=== PATIENT | male | born 1960 | race Caucasian/White ===

== ENCOUNTER 2016-10-28 18:24 | Emergency (ER) | payer OTHER ==
[2016-10-28 18:55] LABS: Urine Bilirubin Negative (NEGATIVE); Urine Blood 25 /ul (NEGATIVE); Urine Ketone 50 mg/dL (NEGATIVE); Urine Protein Negative (NEGATIVE); Urine Urobilinogen Normal (NORMAL); Urine pH 5.5 pH (5.0-7.0)
[2016-10-28 19:15] LABS: Urine Appearance Clear; Urine Bacteria 2+; Urine Color Yellow; Urine Nitrite Positive (NEGATIVE); Urine RBC 0-5 /hpf (0-5)
--- NOTE | 2016-10-28 19:42 | ERNOTE ---
Medical Problem HPI - General Chief Complaint: General Assessment Time Seen by Provider: 10/28/16 19:29 Source: patient Exam Limitations: no limitations - Immun/Allergies/Home Medications Immunizations: IMMUNIZATION HX Immunizations Up to Date Yes History of Influenza Vaccine No Hx Pneumococcal Vaccination More Information Required Allergies/Adverse Reactions: Allergies No Known Allergies Allergy (Verified 10/28/16 18:38) Home Medications: HOME MEDICATIONS metFORMIN HCL [Glucophage] 1,000 mg PO BIDWM #60 tablet 04/20/15 [Last Taken Unknown] Ciprofloxacin HCl [Cipro] 500 mg PO BID #20 tab 10/28/16 [Last Taken Unknown] - History of Present History Narrative: Patient has not felt well in three days, fatigued, increased urination. He denies any dysuria, chills, no fever. He has a history of kidney stones not of UTIs. He vomited once this morning after breakfast, has been able to keep fluids down since. He is a diabetic, has not checked his glucose in a while Date (Duration): 10/25/16 Review of Systems - Review of Systems Constitutional: Present: chills. Absent: recent illness, fever ENT: Absent: ear pain, nose congestion, sore throat Respiratory: Present: cough - slight. Absent: shortness of breath Cardiology: Absent: chest pain Gastrointestinal/Abdominal: Present: See HPI, vomiting, abdominal pain - mild ache. Absent: diarrhea Genitourinary: Present: frequency. Absent: dysuria Musculoskeletal: Absent: back pain Skin: Absent: rash Neurological: Absent: headache - Patient's Past Medical History Patient History - Medical: Diabetes Type 2, Kidney stone Patient History - Cardiac/Respiratory: No pertinent hx Patient History - Cancer: No Hx of Cancer Patient History - Surgical Procedures: Other Patient History - Other: None - Family History Mother Family History - Medical: Diabetes Type 2 Family History - Cardiac/Respiratory: Cardiac Arrest Father Family History - Cardiac/Respiratory: COPD Sister Family History - Medical: Diabetes Type 2, Depression - Social History Living Situations: home Abuse History: No History of abuse Psych History: No pertinent hx Smoking Status: Never smoker Patient requests Smoking Cessation Consult: No Initiate information on Smoking Cessation: No Alcohol Use: none Drug Use: none - Immunizations Immunizations Up to Date: Yes Hx Pneumococcal Vaccination: More Information Required to Determine History of Influenza Vaccine: No Physical Exam - Physical Exam General Appearance: Present: wd/wn, alert, no apparent distress Eye Exam: Normal inspection: bilateral Ears, Nose, Throat: Present: normal ENT inspection, normal pharynx Respiratory: Present: no respiratory distress, normal breath sounds, no accessory muscle use, lungs clear Cardiovascular/Chest: Present: regular rate, rhythm, no murmur Gastrointestinal/Abdominal: Present: normal bowel sounds, nontender, nondistended, soft Back Exam: Present: normal inspection, no vertebral tenderness, CVA tenderness ( R) - mild Extremity Exam: Present: no edema Neurological Exam: Present: alert, oriented, normal mood/affect Skin Exam: Present: normal color, warm/dry ED Progress - Results and Orders Patient's Lab Results:: I have reviewed the patient's lab results. - Vital Signs Patient's Vital Signs:: I have reviewed the patient's vital signs. Vital Signs: Vital Signs 10/28/16 18:35 Temperature 37.3 C Pulse Rate 109 H Respiratory 20 Rate Blood Pressure 147/85 O2 Sat by Pulse 94 Oximetry - Progress/Reassessment Chief Complaint: General Assessment Progress Note-Subjective: 10/28/16 20:23 discussed results and plan with patient Departure - Departure Clinical Impression: UTI (urinary tract infection) Qualifiers: Urinary tract infection type: acute cystitis Hematuria presence: without hematuria Qualified Code(s): N30.00 - Acute cystitis without hematuria Disposition: Home self-care Condition: Good Instructions: Urinary Tract Infection, Adult, [id number] Referrals: Octavio Harp DO [Primary Care Provider] - Prescriptions: Ciprofloxacin HCl [Cipro] 500 mg PO BID #20 tab
[2016-10-28 20:02] LABS: Hematocrit 43.4 % (42.0-52.0); Hemoglobin 15.3 gm/dL (13.5-18.0); Mean Cell Volume 86.8 fl (78-100); Mean Corpuscular Hemoglobin 30.6 pg (27-31); Mean Corpuscular Hgb Conc 35.3 g/dl (32-36); Mean Platelet Volume 11.8 fl (6.0-9.5); Neutrophil # 5.3 K/mm3 (1.3-6.0); Neutrophil % 59.9 % (42-75.0); Platelet Count 184 K/mm3 (150-450); Red Cell Distribution Width 11.9 % (11.5-14.0); White Blood Count 8.9 K/mm3 (4.0-10.5)
[2016-10-28 20:12] LABS: Albumin * 3.7 gm/dl (3.4-5.0); Anion Gap 18.5 mmol/L (6.8-13.8); BUN/Creatinine Ratio 11.6 (9.0-21.6); Bilirubin, Total 0.4 mg/dL (0.0-1.1); Ca. Corrected For Albumin 8.8 mg/dL (8.4-10.2); Calcium * 8.9 mg/dL (7.9-10.9); Carbon Dioxide 22.8 mmol/L (24-32.6); Potassium 4.3 mmol/L (3.4-4.6); Total Protein 7.3 gm/dL (6.2-8.2)
[2016-10-28] MEDS ORDERED: CIPROFLOXACIN HCL 250 MG TABLET PO ONE (20:15)
[2016-10-28] MEDS ORDERED: CIPROFLOXACIN HCL 250 MG TABLET ONE (20:28)
[2016-10-28 20:34] VITALS: BP 136/72
== END 2016-10-28 21:12 | disposition home or self-care (01) ==
LOC: ER 18:24
DX: N30.00 Acute cystitis without hematuria (principal); Z87.442 Personal history of urinary calculi

== ENCOUNTER 2016-12-01 21:13 | Emergency (ER) | payer OTHER ==
--- NOTE | 2016-12-01 21:40 | ERNOTE ---
Chest Pain/Cardiac HPI Chief Complaint: Chest Pain Time Seen by Provider: 12/01/16 21:39 Source: patient, family Exam Limitations: no limitations Immunizations: IMMUNIZATION HX Immunizations Up to Date Yes History of Influenza Vaccine No Hx Pneumococcal Vaccination More Information Required Allergies/Adverse Reactions: Allergies No Known Allergies Allergy (Verified 10/28/16 18:38) Home Medications: HOME MEDICATIONS metFORMIN HCL [Glucophage] 1,000 mg PO BIDWM #60 tablet 04/20/15 [Last Taken Unknown] Aspirin [Aspir-Low] 81 mg PO DAILY 12/01/16 [Last Taken Unknown] Rosuvastatin Calcium [Crestor] 10 mg PO DAILY 12/01/16 [Last Taken Unknown] Narrative: pt had onset of left sided chest pain approx 4 hours [employer] while sitting watching TV. Timing: constant, gone now Severity/Quality: moderate, aching Location: left chest Activities at Onset: none Review of Systems - Review of Systems Constitutional: Present: no symptoms reported EYE: Present: no symptoms reported ENT: Present: no symptoms reported Respiratory: Present: cough Cardiology: Present: See HPI. Absent: edema, claudication Gastrointestinal/Abdominal: Absent: nausea Genitourinary: Present: no symptoms reported Musculoskeletal: Present: no symptoms reported Skin: Present: no symptoms reported Neurological: Present: no symptoms reported Endocrine: Present: no symptoms reported Hematologic/Lymphatic: Present: no symptoms reported Psych: Present: no symptoms reported - Patient's Past Medical History Patient History - Medical: Diabetes Type 2, Kidney stone Patient History - Cardiac/Respiratory: No pertinent hx Patient History - Cancer: No Hx of Cancer Patient History - Surgical Procedures: Other Patient History - Other: None - Family History Mother Family History - Medical: Diabetes Type 2 Family History - Cardiac/Respiratory: Cardiac Arrest Father Family History - Cardiac/Respiratory: COPD Sister Family History - Medical: Diabetes Type 2, Depression - Social History Living Situations: parents Abuse History: No History of abuse Psych History: No pertinent hx Smoking Status: Never smoker Alcohol Use: none Drug Use: none - Immunizations Immunizations Up to Date: Yes Hx Pneumococcal Vaccination: More Information Required to Determine History of Influenza Vaccine: No Physical Exam - Physical Exam General Appearance: Present: wd/wn, alert, no apparent distress Eye Exam: Normal inspection: bilateral, PERRL: bilateral Ears, Nose, Throat: Present: normal ENT inspection Neck: Present: normal inspection, nontender Respiratory: Present: no respiratory distress, normal breath sounds, lungs clear Cardiovascular/Chest: Present: regular rate, rhythm, no murmur, normal peripheral pulses Gastrointestinal/Abdominal: Present: normal bowel sounds, nontender, no organomegaly Back Exam: Present: normal inspection, normal range of motion, no CVA tenderness , no vertebral tenderness Extremity Exam: Present: normal inspection, normal range of motion, no edema Neurological Exam: Present: alert, oriented, normal mood/affect, no motor/ sensory deficits Skin Exam: Present: normal color, warm/dry ED Progress - Results and Orders Patient's Lab Results:: I have reviewed the patient's lab results. Results and Orders: Laboratory Tests 12/01/16 12/01/16 12/01/16 21:35 21:35 21:35 WBC 9.3 Hgb 14.8 Hct 41.7 L Plt Count 201 PT 10.0 INR (Anticoag Therapy) 0.96 PTT ([place]) 25.0 Sodium 133 Potassium 4.2 Chloride 97 Carbon Dioxide 23.1 L Anion Gap 17.1 H BUN 10 Creatinine 1.27 Est GFR (Non-Af Amer) 63 BUN/Creatinine Ratio 7.9 L Random Glucose 639 H* Calcium 8.8 Total Bilirubin 0.5 AST 15 ALT 29 Alkaline Phosphatase 78 Troponin I Less than 0.017 Total Protein 6.9 Albumin 3.7 - Vital Signs Patient's Vital Signs:: I have reviewed the patient's vital signs. Vital Signs: Vital Signs 12/01/16 21:21 Temperature 37.1 C Pulse Rate 80 Respiratory 20 Rate Blood Pressure 135/88 O2 Sat by Pulse 94 Oximetry - EKG EKG: NSR EKG read: Interp. by me - X-Ray X-Ray #1 X-Ray: chest Interpretation: Interp. by me X-ray Comments: normal - Progress/Reassessment Chief Complaint: Chest Pain Departure - Departure Clinical Impression: Hyperglycemia Disposition: Home Follow Up Needed Condition: Fair Instructions: Hyperglycemia, [id number] Additional Instructions: Talk to your regular doctor about additional medication for your diabetes as soon as possible. Watch your diet and take your medications as directed. pay close attention to your blood sugars and discuss any high blood sugars with your doctor. Referrals: Octavio Harp, [Primary Care Provider] -
[2016-12-01 21:46] LABS: Hematocrit 41.7 % (42.0-52.0); Hemoglobin 14.8 gm/dL (13.5-18.0); Mean Cell Volume 88.5 fl (78-100); Mean Corpuscular Hemoglobin 31.4 pg (27-31); Mean Corpuscular Hgb Conc 35.5 g/dl (32-36); Mean Platelet Volume 11.3 fl (6.0-9.5); Neutrophil # 4.5 K/mm3 (1.3-6.0); Neutrophil % 48.6 % (42-75.0); Platelet Count 201 K/mm3 (150-450); Red Blood Count 4.71 M/mm3 (4.7-6.0); Red Cell Distribution Width 12.2 % (11.5-14.0); White Blood Count 9.3 K/mm3 (4.0-10.5)
[2016-12-01 21:52] LABS: INR 0.96 INR (0.90-1.10)
[2016-12-01 21:59] LABS: ALT 29 U/L (19-67); AST 15 U/L (0-48); Albumin * 3.7 gm/dl (3.4-5.0); Alkaline Phosphatase * 78 U/L (50-170); Anion Gap 17.1 mmol/L (6.8-13.8); BUN/Creatinine Ratio 7.9 (9.0-21.6); Bilirubin, Total 0.5 mg/dL (0.0-1.1); Blood Urea Nitrogen 10 mg/dL (6-23); Ca. Corrected For Albumin 8.7 mg/dL (8.4-10.2); Calcium * 8.8 mg/dL (7.9-10.9); Carbon Dioxide 23.1 mmol/L (24-32.6); Chloride 97 mmol/L (97-106); Potassium 4.2 mmol/L (3.4-4.6); Sodium 133 mmol/L (132-142); Total Protein 6.9 gm/dL (6.2-8.2)
[2016-12-01 22:17] LABS: Troponin I Less than 0.017 ng/ml (0.00-0.10)
[2016-12-01 22:18] LABS: Glucose * 639 mg/dL (70-110)
[2016-12-01] MEDS ORDERED: INSULIN LISPRO 100 UNITS/ML VIAL SC ONE (23:28)
[2016-12-01] MEDS ORDERED: INSULIN LISPRO 100 UNITS/ML VIAL ONE (23:31)
[2016-12-02 00:41] VITALS: BP 121/76
== END 2016-12-02 00:57 | disposition home or self-care (01) ==
LOC: ER 21:13
DX: R73.9 Hyperglycemia, unspecified (principal)

== ENCOUNTER 2017-06-22 19:11 | Emergency (ER) | payer OTHER ==
[2017-06-22 19:34] LABS: Hematocrit 43.7 % (42.0-52.0); Hemoglobin 15.2 gm/dL (13.5-18.0); Mean Cell Volume 88.3 fl (78-100); Mean Corpuscular Hemoglobin 30.7 pg (27-31); Mean Corpuscular Hgb Conc 34.8 g/dl (32-36); Mean Platelet Volume 10.7 fl (6.0-9.5); Neutrophil # 5.3 K/mm3 (1.3-6.0); Neutrophil % 52.6 % (42-75.0); Platelet Count 192 K/mm3 (150-450); Red Blood Count 4.95 M/mm3 (4.7-6.0); Red Cell Distribution Width 12.5 % (11.5-14.0)
[2017-06-22 19:46] LABS: Partial Thrombolplastin Time 25.7 Seconds (24-32)
[2017-06-22 19:52] LABS: ALT 41 U/L (19-67); AST 23 U/L (0-48); Albumin * 3.9 gm/dl (3.4-5.0); Alkaline Phosphatase * 66 U/L (50-170); Anion Gap 15.9 mmol/L (6.8-13.8); Bilirubin, Total 0.5 mg/dL (0.0-1.1); Blood Urea Nitrogen 14 mg/dL (6-23); Ca. Corrected For Albumin 8.9 mg/dL (8.4-10.2); Calcium * 9.1 mg/dL (7.9-10.9); Carbon Dioxide 26.8 mmol/L (24-32.6); Chloride 101 mmol/L (97-106); Glucose * 223 mg/dL (70-110); Potassium 3.7 mmol/L (3.4-4.6); Sodium 140 mmol/L (132-142); Total Protein 7.3 gm/dL (6.2-8.2)
[2017-06-22 19:53] LABS: Troponin I Less than 0.017 ng/ml (0.00-0.10)
[2017-06-22] MEDS ORDERED: ASPIRIN 325 MG TABLET.DR PO ONE (20:07)
[2017-06-22] MEDS ORDERED: ASPIRIN 81 MG TAB.CHEW ONE (20:12)
[2017-06-22 20:35] LABS: Urine Bilirubin Negative (NEGATIVE); Urine Blood Negative /ul (NEGATIVE); Urine Ketone 5 mg/dL (NEGATIVE); Urine Nitrite Negative (NEGATIVE); Urine Protein 15 mg/dL (NEGATIVE); Urine Specific Gravity 1.015 SP.GR. (1.005-1.030); Urine Urobilinogen Normal (NORMAL)
[2017-06-22 20:45] LABS: Urine Appearance Clear; Urine Bacteria TRACE; Urine Color Yellow; Urine RBC None Seen /hpf (0-5); Urine WBC TRACE /hpf (0-5)
--- NOTE | 2017-06-22 20:49 | ERNOTE ---
Chest Pain/Cardiac HPI Date of Service: 06/22/17 Chief Complaint: Chest Pain Time Seen by Provider: 06/22/17 20:07 Source: patient Immunizations: IMMUNIZATION HX Immunizations Up to Date Yes History of Influenza Vaccine No Hx Pneumococcal Vaccination More Information Required Allergies/Adverse Reactions: Allergies No Known Allergies Allergy (Verified 10/28/16 18:38) Home Medications: HOME MEDICATIONS metFORMIN HCL [Glucophage] 1,000 mg PO BIDWM #60 tablet 04/20/15 [Last Taken Unknown] Aspirin [Aspir-Low] 81 mg PO DAILY 12/01/16 [Last Taken Unknown] Rosuvastatin Calcium [Crestor] 10 mg PO DAILY 12/01/16 [Last Taken Unknown] Glimepiride 1 mg PO DAILY 06/22/17 [Last Taken Unknown] Narrative: 56-year-old male with a history of diabetes and high cholesterol who comes to the emergency department complaining of some chest fullness. The patient says he's felt run down with no energy for the last day and a half. He says he took a nap this afternoon. He woke up around 6:00 and then walked to the dining room table from a sofa. He said after the walk he had some fullness in his chest. He says he has been getting sweaty all over and does have some mild shortness of breath. He denies nausea or vomiting. The pain does not radiate anywhere. He has never had similar symptoms in the past. The discomfort is very hard for him to describe. He has no tingling in his hands. No radiation to the neck or the jaw. No other associated symptoms besides those mentioned. He does not smoke has no family of early cardiac disease and no known high blood pressure Review of Systems - Review of Systems Constitutional: Present: no symptoms reported EYE: Present: no symptoms reported ENT: Present: no symptoms reported Respiratory: Present: shortness of breath Cardiology: Present: chest pain Gastrointestinal/Abdominal: Present: no symptoms reported Genitourinary: Present: no symptoms reported Musculoskeletal: Present: no symptoms reported Skin: Present: no symptoms reported Neurological: Present: no symptoms reported Endocrine: Present: no symptoms reported Hematologic/Lymphatic: Present: no symptoms reported Psych: Present: no symptoms reported All Other Systems: All systems neg except as marked - Patient's Past Medical History Patient History - Medical: Diabetes Type 2, Kidney stone Patient History - Cardiac/Respiratory: No pertinent hx Patient History - Cancer: No Hx of Cancer Patient History - Surgical Procedures: Other Patient History - Other: None - Family History Mother Family History - Medical: Diabetes Type 2 Family History - Cardiac/Respiratory: Cardiac Arrest Father Family History - Cardiac/Respiratory: COPD Sister Family History - Medical: Diabetes Type 2, Depression - Social History Living Situations: spouse Abuse History: No History of abuse Psych History: No pertinent hx Smoking Status: Never smoker Have you smoked in the past 12 months: No Do you dip or chew tobacco: No Alcohol Use: none Drug Use: none - Immunizations Immunizations Up to Date: Yes Hx Pneumococcal Vaccination: More Information Required to Determine History of Influenza Vaccine: No Physical Exam - Physical Exam General Appearance: Present: wd/wn, alert, no apparent distress Head Exam: Present: normal inspection, no evidence of injury Eye Exam: Normal inspection: bilateral, PERRL: bilateral, EOMI: bilateral Ears, Nose, Throat: Present: normal ENT inspection, normal pharynx Neck: Present: normal inspection, nontender Respiratory: Present: no respiratory distress, normal breath sounds, no accessory muscle use, lungs clear Cardiovascular/Chest: Present: regular rate, rhythm, no murmur, normal peripheral pulses Gastrointestinal/Abdominal: Present: normal bowel sounds, nontender, nondistended Back Exam: Present: normal inspection, normal range of motion, no CVA tenderness , no vertebral tenderness Extremity Exam: Present: normal inspection, non-tender, normal range of motion, no edema Neurological Exam: Present: alert, oriented, normal mood/affect, no motor/ sensory deficits Skin Exam: Present: normal color, warm/dry Lymphatic Exam: Present: no adenopathy ED Progress - Results and Orders Patient's Lab Results:: I have reviewed the patient's lab results. - Vital Signs Patient's Vital Signs:: I have reviewed the patient's vital signs. Vital Signs: Vital Signs 06/22/17 06/22/17 06/22/17 19:16 19:44 20:08 Temperature 36.6 C 36.6 C 36.7 C Pulse Rate 76 73 76 Respiratory 20 20 19 Rate Blood Pressure 135/87 132/83 136/76 O2 Sat by Pulse 93 93 94 Oximetry - EKG EKG: NSR EKG read: Interp. by me EKG Comments: Normal sinus rhythm normal axis normal intervals no acute ST segment changes - X-Ray X-Ray #1 X-Ray: chest Interpretation: Interp. by me X-ray Comments: No acute cardiopulmonary disease - Progress/Reassessment Chief Complaint: Chest Pain Progress:: Improved Progress Note-Subjective: 06/23/17 00:42 She does wear a do not have any definitive cause for his symptoms. I will give him today off of work. He will follow-up with his family doctor. He is aware he may need to set up a stress test as an outpatient. He will return for new worsening symptoms Departure Clinical Impression: Chest pain - Departure Disposition: Home self-care Condition: Good Instructions: Chest Pain Observation Additional Instructions: Ancillary discussed, the tests and studies we have done here in the emergency department do not identify a definitive cause for your symptoms. This does not mean that your symptoms are not from her heart. He may still have a heart problem. I want you call your family doctor and talked to him about whether or not you need a stress test. He did decide how much stress and frustration you're going to deal with in life. Change in lifestyle may be prudent. If you develop new concerning symptoms she should return to the ER. Referrals: Octavio Harp DO [Primary Care Provider] -
[2017-06-23 01:25] VITALS: BP 135/87
== END 2017-06-23 00:50 | disposition home or self-care (01) ==
LOC: ER 19:11
DX: R07.9 Chest pain, unspecified (principal); Z87.442 Personal history of urinary calculi; E11.9 Type 2 diabetes mellitus without complications

== ENCOUNTER 2017-07-15 20:33 | Emergency (ER) | payer OTHER ==
--- NOTE | 2017-07-15 21:06 | ERNOTE ---
Psychological HPI - General Chief Complaint: Anxiety Source: Reports: patient Exam Limitations: Reports: no limitations - Immun/Allergies/Home Medications Allergies/Adverse Reactions: Allergies No Known Allergies Allergy (Verified 07/15/17 20:44) Home Medications: HOME MEDICATIONS metFORMIN HCL [Glucophage] 1,000 mg PO BIDWM #60 tablet 04/20/15 [Last Taken Unknown] Aspirin [Aspir-Low] 81 mg PO DAILY 12/01/16 [Last Taken Unknown] Rosuvastatin Calcium [Crestor] 10 mg PO DAILY 12/01/16 [Last Taken Unknown] Glimepiride 1 mg PO DAILY 06/22/17 [Last Taken Unknown] hydrOXYzine PAMOATE [Hydroxyzine Pamoate] 25 mg PO TID PRN #20 capsule 07/15/17 [Last Taken Unknown] - History of Present Illness Narrative: pt has been anxious since November. He saw his PCP and was prescribed medications but did not begin taking them. He had a cardiac stress test on Thursday but has not received the results and has more stress at work. All this is getting him more anxious and his "nerves are shot". Time Seen by Provider: 07/15/17 20:52 Onset/duration: Reports: sudden onset Review of Systems - Review of Systems Constitutional: Absent: recent illness EYE: Present: no symptoms reported ENT: Present: no symptoms reported Respiratory: Present: shortness of breath Cardiology: Present: chest pain - last week Gastrointestinal/Abdominal: Present: no symptoms reported Genitourinary: Present: no symptoms reported Musculoskeletal: Present: no symptoms reported Skin: Absent: rash Neurological: Present: anxiety Endocrine: Present: no symptoms reported Hematologic/Lymphatic: Present: no symptoms reported Psych: Present: no symptoms reported - Patient's Past Medical History Patient History - Medical: Diabetes Type 2, Depression, Kidney stone Patient History - Cardiac/Respiratory: No pertinent hx Patient History - Cancer: No Hx of Cancer Patient History - Surgical Procedures: Other Patient History - Other: None - Family History Mother Family History - Medical: Diabetes Type 2 Family History - Cardiac/Respiratory: Cardiac Arrest Father Family History - Cardiac/Respiratory: COPD Sister Family History - Medical: Diabetes Type 2, Depression - Social History Living Situations: home Abuse History: No History of abuse Psych History: Hx of Depression Smoking Status: Never smoker Alcohol Use: none Drug Use: none - Immunizations Immunizations Up to Date: Yes Hx Pneumococcal Vaccination: More Information Required to Determine History of Influenza Vaccine: No Psychological Exam - Exam General Appearance: Present: wd/wn, alert, no apparent distress Head Exam: Present: normal inspection, no evidence of injury Neurological: Present: alert, calm, internal medicine specialist II-XII nml as tested Thoughts/Hallucinations: Present: normal thought pattern Behavior/Eye Contact/Speech: Present: cooperative, good eye contact, decreased rate of speech Ears, Nose, Throat: Present: normal ENT inspection Neck: Present: normal inspection, nontender, supple Respiratory: Present: no respiratory distress, no accessory muscle use Back Exam: Present: normal inspection, normal range of motion, no CVA tenderness Extremity Exam: Present: normal inspection, normal range of motion, no edema Skin Exam: Present: normal color, warm/dry, no cyanosis Lymphatic Exam: Present: no adenopathy ED Progress - Results and Orders Patient's Lab Results:: I have reviewed the patient's lab results. Results and Orders: Laboratory Tests 07/15/17 07/15/17 07/15/17 21:36 21:36 21:45 WBC 11.1 H Hgb 15.2 Hct 43.4 Plt Count 242 Sodium 140 Potassium 3.8 Chloride 103 Carbon Dioxide 27.7 BUN 14 Creatinine 1.12 Random Glucose 187 H Calcium 9.4 Total Bilirubin 0.3 AST 13 ALT 35 Alkaline Phosphatase 58 Troponin I Less than 0.017 Total Protein 7.4 Albumin 4.1 TSH 2.675 Urine Color Yellow Urine Appearance Clear Urine pH 6.0 Ur Specific [place] 1.025 Urine Protein Negative Urine Glucose (UA) 500 H Urine Ketones 5 Urine Blood Negative Urine Nitrate Negative Urine Bilirubin Negative Urine Urobilinogen Normal Ur Leukocyte Esterase Negative Urine RBC Trace Urine WBC Trace Ur Epithelial Cells None seen Urine Bacteria Trace Urine Culture Comments No culture indicated Urine Opiates Screen Barbiturate Screen Ur Phencyclidine Scrn Urine Amphetamine U Benzodiazepines Scrn Urine Cocaine Screen Urine Marijuana (THC) Ethyl Alcohol Less than 3.0 07/15/17 21:45 WBC Hgb Hct Plt Count Sodium Potassium Chloride Carbon Dioxide BUN Creatinine Random Glucose Calcium Total Bilirubin AST ALT Alkaline Phosphatase Troponin I Total Protein Albumin TSH Urine Color Urine Appearance Urine pH Ur Specific [place] Urine Protein Urine Glucose (UA) Urine Ketones Urine Blood Urine Nitrate Urine Bilirubin Urine Urobilinogen Ur Leukocyte Esterase Urine RBC Urine WBC Ur Epithelial Cells Urine Bacteria Urine Culture Comments Urine Opiates Screen Negative Barbiturate Screen Negative Ur Phencyclidine Scrn Negative Urine Amphetamine Negative U Benzodiazepines Scrn Negative Urine Cocaine Screen Negative Urine Marijuana (THC) Negative Ethyl Alcohol - Vital Signs Patient's Vital Signs:: I have reviewed the patient's vital signs. Vital Signs: Vital Signs 07/15/17 20:38 Temperature 36.3 C L Pulse Rate 77 Respiratory 18 Rate Blood Pressure 127/86 O2 Sat by Pulse 96 Oximetry - Progress/Reassessment Chief Complaint: Anxiety Departure Clinical Impression: Anxiety - Departure Disposition: Home Follow Up Needed Condition: Good Instructions: Panic Attacks, [id number] Additional Instructions: See Dr. Harp as soon as possible to discuss long-term treatment Referrals: Octavio Harp DO [Primary Care Provider] - Prescriptions: hydrOXYzine PAMOATE [Hydroxyzine Pamoate] 25 mg PO TID PRN #20 capsule PRN Reason: Anxiety
[2017-07-15 21:37] LABS: Hematocrit 43.4 % (42.0-52.0); Hemoglobin 15.2 gm/dL (13.5-18.0); Mean Cell Volume 88.2 fl (78-100); Mean Corpuscular Hemoglobin 30.9 pg (27-31); Mean Platelet Volume 10.8 fl (6.0-9.5); Neutrophil # 5.6 K/mm3 (1.3-6.0); Neutrophil % 50.5 % (42-75.0); Platelet Count 242 K/mm3 (150-450); Red Blood Count 4.92 M/mm3 (4.7-6.0); Red Cell Distribution Width 12.5 % (11.5-14.0); White Blood Count 11.1 K/mm3 (4.0-10.5)
[2017-07-15 21:56] LABS: Troponin I Less than 0.017 ng/ml (0.00-0.10)
[2017-07-15 21:57] LABS: Urine Bilirubin Negative (NEGATIVE); Urine Blood Negative /ul (NEGATIVE); Urine Ketone 5 mg/dL (NEGATIVE); Urine Nitrite Negative (NEGATIVE); Urine Protein Negative (NEGATIVE); Urine Specific Gravity 1.025 SP.GR. (1.005-1.030); Urine Urobilinogen Normal (NORMAL)
[2017-07-15 22:00] LABS: ALT 35 U/L (19-67); AST 13 U/L (0-48); Albumin * 4.1 gm/dl (3.4-5.0); Alkaline Phosphatase * 58 U/L (50-170); Anion Gap 13.1 mmol/L (6.8-13.8); BUN/Creatinine Ratio 12.5 (9.0-21.6); Bilirubin, Total 0.3 mg/dL (0.0-1.1); Blood Urea Nitrogen 14 mg/dL (6-23); Calcium * 9.4 mg/dL (7.9-10.9); Carbon Dioxide 27.7 mmol/L (24-32.6); Chloride 103 mmol/L (97-106); Glucose * 187 mg/dL (70-110); Potassium 3.8 mmol/L (3.4-4.6); Sodium 140 mmol/L (132-142); TSH * 2.675 uIU/mL (0.358-3.74); Total Protein 7.4 gm/dL (6.2-8.2)
[2017-07-15 22:06] LABS: Urine Appearance Clear; Urine Bacteria TRACE; Urine Color Yellow; Urine RBC TRACE /hpf (0-5); Urine WBC TRACE /hpf (0-5)
[2017-07-15 22:29] LABS: Cocaine Ur Negative (NEGATIVE); Urine Barbiturate Negative (NEGATIVE); Urine Benzodiazepines Negative (NEGATIVE); Urine Opiates Negative (NEGATIVE); Urine PCP Negative (NEGATIVE); Urine THC Negative (NEGATIVE)
[2017-07-15] MEDS ORDERED: hydrOXYzine PAMOATE 25 MG CAPSULE PO ONE (22:45)
[2017-07-15] MEDS ORDERED: hydrOXYzine PAMOATE 25 MG CAPSULE ONE (22:59)
[2017-07-16 04:31] VITALS: BP 131/89
== END 2017-07-15 23:18 | disposition home or self-care (01) ==
LOC: ER 20:33
DX: F41.9 Anxiety disorder, unspecified (principal); Z87.442 Personal history of urinary calculi
CPT/HCPCS: 36415; 80053; 80307; 81001; 84443; 84484; 85025; 99283; G0481

== ENCOUNTER 2018-07-14 15:36 | Observation (INO) ==
[2018-07-14] MEDS ORDERED: NORMAL SALINE 1,000 ML IV STA (15:46)
[2018-07-14] MEDS ORDERED: INSULIN REGULAR, HUMAN 100 UNITS in NORMAL SALINE 100 ML IV PRN ×2 (15:46)
--- NOTE | 2018-07-14 17:09 | HP ---
Chief Complaint - Chief Complaint Date of Service: 07/14/18 Time of Service: 17:09 Chief Complaint: Fatigue and elevated blood sugars History of Present Illness: Jose is a 57 yo male that presented to clinic today with complaints of elevated blood sugar, fatigue, excessive thirst, and increased urination. He reports being on antibiotics started in [facility] ER for UTI. He was told at that visit that his blood sugar was 600. He reports his glucometer has been out of batteries lately and he has not been able to check his sugars. Labs were done in clinic today which show Bicarb of 21 with anion gap of 18. Random glucose is >300 and there are serum ketones present. He denies vomiting. He reports taking Metformin but has been out of glimepiride for the past two weeks. Medical History (Last Reviewed 07/14/18 @ 16:39 by Damaris Guevara RN) Diabetic eye exam (Acute) Onset Date: 06/14/18 No evidence of diabetic retinopathy found in either eye. * Followed by Dr. Josh Lipscomb, miller head. [facility]. Subungual hematoma (Acute) Chest pain (Acute) Acute renal failure (ARF) (Acute) Hyponatremia (Acute) Diabetes mellitus type 2 in nonobese (Chronic) Laceration of left index finger (Acute) Muscle strain of scapular region (Acute) UTI (urinary tract infection) (Acute) Hyperglycemia (Acute) Anxiety (Acute) Surgical History: Surgical History (Last Reviewed 07/14/18 @ 16:39 by Damaris Guevara RN) S/P laminectomy (Acute) Onset Date: Unknown L shoulder 2012 Normal colonoscopy (Acute) Onset Date: ~2015 Family History: Family History (Last Reviewed 07/14/18 @ 16:39 by Damaris Guevara RN) Mother Myocardial infarction Social History: Patient Lives/Resources With Parents Utilized Occupation Teacher Preferred Language Maori Do you have any zoroastrianism or No cultural preference? Smoking Status Never smoker Have you smoked in the past 12 No months Abuse History No History of abuse Psych History Hx of Depression (Last Updated 07/06/18 @ 17:43 by May Quiles DNP) No Social History Section defined Review Of Systems (GEN) - Review of Systems Generalized/Overall Review: Present: Weakness, Fatigue. Absent: Chills, Fever EENTM: Present: No Symptoms Reported Respiratory: Absent: Cough, Shortness of Breath Cardiac: Absent: Chest Pain, Edema Abdominal: Present: Nausea. Absent: Vomiting, Abdominal Pain, Constipation, Diarrhea Genitourinary: Present: Urgency, Frequency Musculoskeletal: Present: No Symptoms Reported Neurological: Present: Weakness. Absent: Headache Skin: Present: No Symptoms Reported Endocrine: Present: Increased Thirst Immunizations: IMMUNIZATION HX Immunizations Up to Date Yes History of Influenza Vaccine No Hx Pneumococcal Vaccination More Information Required Allergies/Adverse Reactions: Allergies Allergy/AdvReac Type Severity Reaction Status Date / Time No Known Allergies Allergy Verified 07/14/18 16:36 Home Medications: HOME MEDICATIONS metFORMIN HCL [Glucophage] 1,000 mg PO BIDWM #60 tab 04/20/15 [Last Taken 07/14/18 09:00] Aspirin [Aspir-Low] 81 mg PO DAILY PRN 12/01/16 [Last Taken Unknown] Rosuvastatin Calcium [Crestor] 10 mg PO DAILY 12/01/16 [Last Taken Unknown] hydrOXYzine PAMOATE [Hydroxyzine Pamoate] 25 mg PO TID PRN #20 cap 07/15/17 [Last Taken Unknown] sulfamethoxazole 800 mg-trimethoprim 160 mg tablet 1 tab PO BID 14 Days #28 tab 07/06/18 [Last Taken 07/14/18 09:00] Acetaminophen [Tylenol] 650 mg PO Q4H PRN 07/14/18 [Last Taken Unknown] glimepiride 2 mg tablet 2 mg PO DAILY #90 tab 07/14/18 [Last Taken Unknown] nystatin 100,000 unit/mL oral suspension 5 ml PO QID 7 Days #140 ml 07/14/18 [Last Taken 07/14/18 09:00] Exam - Exam Vital Signs: Vital Signs - Last Taken Temp 36.6 C 07/14/18 16:23 Pulse 84 07/14/18 16:23 Resp 14 07/14/18 16:23 BP 122/81 07/14/18 16:23 Pulse Ox 96 07/14/18 16:23 Constitutional: Present: Alert, Oriented x3, Cooperative, Other - Fatigued ENT Exam: Present: hearing grossly normal Respiratory: Present: lungs clear, normal breath sounds Cardiovascular/Chest: Present: regular rate, rhythm, no murmur Abdomen: Present: Normal bowel sounds, soft, nontender, nondistended Skin Exam: Present: normal color, warm/dry, no cyanosis Neurologic: Present: alert, normal mood/affect, oriented x 3 Appearance: Present: appropriate appearance, appropriate insight Eye contact: Present: cooperative, good eye contact, normal speech Thoughts: Present: normal thought pattern, no apparent hallucination Diagnostic Studies: Abnormal Lab Results 07/14/18 Range/Units 16:40 pCO2 24.6 L (35.0-48.0) mmHg pO2 76.6 L (83.0-108.0) mmHg HCO3 13.3 L (21.0-28.0) mmol/L Total CO2 14.1 L (19.0-24.0) mmol/L Base Excess -10.2 L (-2.0-3.0) mmol/L Laboratory Results pCO2 24.6 mmHg (35.0-48.0) L 07/14/18 16:40 pO2 76.6 mmHg (83.0-108.0) L 07/14/18 16:40 HCO3 13.3 mmol/L (21.0-28.0) L 07/14/18 16:40 Total CO2 14.1 mmol/L (19.0-24.0) L 07/14/18 16:40 Base Excess -10.2 mmol/L (-2.0-3.0) L 07/14/18 16:40 ABG pH 7.35 (7.35-7.45) 07/14/18 16:40 ABG O2 Sat (Measured) 95.1 % (94.0-98.0) 07/14/18 16:40 Troponin I Less than 0.017 ng/mL (0.00-0.10) 07/14/18 15:46 Assessment/Plan - Assessment/Plan (1) Diabetic ketoacidosis Assessment: Jose is a 57 yo male with: 1) Diabetic Ketoacidosis secondary to uncontrolled diabetes and possibly complicated by recent UTI. He has a metabolic acidosis as evidenced by bicarb of 21 with anion gap of 18. He has an elevated glucose of >300 and serum ketones present. Will admit to acute inpatient status and treat with IV fluid bolus and aggressive fluids to close gap and correct acidosis. Will also treat with IV insulin and titrate to gradually lower blood sugars. Will monitor hourly blood sugars and BMP every 4 hours. Expect >2 midnights to correct acidosis and stabilize blood sugars. Will evaluate for other causes of DKA including NM, pneumonia, and continued UTI. Will check a blood gas to accurately measure pH. Problem: Acute Qualifiers: Diabetes mellitus type: type 2 Diabetes mellitus complication detail: without coma Qualified Code(s): E11.10 - Type 2 diabetes mellitus with ketoacidosis without coma
[2018-07-14 17:40] LABS: Albumin * 3.4 gm/dl (3.4-5.0); BUN/Creatinine Ratio 11.1 (9.0-21.6); Bilirubin, Total 0.6 mg/dL (0.0-1.1); Ca. Corrected For Albumin 9.1 mg/dL (8.4-10.2); Calcium * 8.9 mg/dL (7.9-10.9); Carbon Dioxide 20.7 mmol/L (24-32.6); Potassium 4.7 mmol/L (3.4-4.6); Total Protein 7.1 gm/dL (6.2-8.2)
[2018-07-14] MEDS ORDERED: POTASSIUM CHLORIDE 10 MEQ in NORMAL SALINE 1,000 ML IV SCH (17:45)
[2018-07-14] MEDS ORDERED: NORMAL SALINE 1,000 ML IV PRN (18:07)
[2018-07-14] MEDS ORDERED: ACETAMINOPHEN 325 MG TABLET PO PRN (19:01)
[2018-07-14] MEDS ORDERED: ASPIRIN 81 MG TABLET.DR PO PRN (19:01)
[2018-07-14] MEDS ORDERED: hydrOXYzine PAMOATE 25 MG CAPSULE PO PRN (19:01)
[2018-07-14] MEDS ORDERED: DEXTROSE 5%-0.5 NORMAL SALINE 1,000 ML IV PRN (20:18)
[2018-07-14] MEDS: SULFAMETHOXAZOLE/TRIMETHOPRIM 1 TAB TABLET PO SCH (21:23)
[2018-07-14] MEDS: NYSTATIN 60 ML BTL PO SCH (21:24)
[2018-07-14 21:27] LABS: Albumin * 2.9 gm/dl (3.4-5.0); Anion Gap 14.2 mmol/L (6.8-13.8); Bilirubin, Total 0.5 mg/dL (0.0-1.1); Ca. Corrected For Albumin 8.6 mg/dL (8.4-10.2); Carbon Dioxide 19.7 mmol/L (24-32.6); Potassium 3.9 mmol/L (3.4-4.6); Total Protein 6.1 gm/dL (6.2-8.2)
[2018-07-14 23:07] LABS: Urine Appearance Clear (CLEAR); Urine Bilirubin 1 mg/dl (NEGATIVE); Urine Blood Negative /ul (NEGATIVE); Urine Color Yellow; Urine Ketone Large mg/dL (NEGATIVE); Urine Nitrite Negative (NEGATIVE); Urine Protein Negative (NEGATIVE); Urine Specific Gravity >=1.030 SP.GR. (1.005-1.030); Urine Urobilinogen Normal (NORMAL)
[2018-07-14 23:08] LABS: Urine Amorphous Sediment TRACE (NONE-FEW); Urine Bacteria TRACE; Urine RBC None Seen /hpf (0-5); Urine WBC TRACE /hpf (0-5)
[2018-07-15] MEDS: POTASSIUM CHLORIDE 20 MEQ in DEXTROSE 5%-0.5 NORMAL SALINE 990 ML IV SCH ×2 (01:30→09:40)
[2018-07-15 01:55] LABS: Albumin * 2.8 gm/dl (3.4-5.0); Anion Gap 12.7 mmol/L (6.8-13.8); BUN/Creatinine Ratio 9.8 (9.0-21.6); Bilirubin, Total 0.5 mg/dL (0.0-1.1); Ca. Corrected For Albumin 8.3 mg/dL (8.4-10.2); Calcium * 7.7 mg/dL (7.9-10.9); Carbon Dioxide 21.8 mmol/L (24-32.6); Potassium 3.5 mmol/L (3.4-4.6); Total Protein 5.9 gm/dL (6.2-8.2)
[2018-07-15 05:27] LABS: Albumin * 2.8 gm/dl (3.4-5.0); Anion Gap 8.9 mmol/L (6.8-13.8); BUN/Creatinine Ratio 8.8 (9.0-21.6); Bilirubin, Total 0.5 mg/dL (0.0-1.1); Ca. Corrected For Albumin 8.3 mg/dL (8.4-10.2); Calcium * 7.7 mg/dL (7.9-10.9); Carbon Dioxide 23.7 mmol/L (24-32.6); Potassium 3.6 mmol/L (3.4-4.6); Total Protein 5.9 gm/dL (6.2-8.2)
[2018-07-15] MEDS: NYSTATIN 60 ML BTL PO SCH ×3 (08:02→17:07)
[2018-07-15] MEDS: SULFAMETHOXAZOLE/TRIMETHOPRIM 1 TAB TABLET PO SCH (08:02)
[2018-07-15] MEDS ORDERED: ROSUVASTATIN CALCIUM 10 MG TABLET PO SCH ×2 (09:00→21:00)
[2018-07-15 09:31] LABS: Albumin * 2.8 gm/dl (3.4-5.0); Anion Gap 11.8 mmol/L (6.8-13.8); Bilirubin, Total 0.5 mg/dL (0.0-1.1); Ca. Corrected For Albumin 8.5 mg/dL (8.4-10.2); Calcium * 7.9 mg/dL (7.9-10.9); Carbon Dioxide 21.9 mmol/L (24-32.6); Potassium 3.7 mmol/L (3.4-4.6)
[2018-07-15] MEDS ORDERED: GLIMEPIRIDE 2 MG TABLET PO SCH (11:30)
[2018-07-15 14:23] LABS: Albumin * 2.9 gm/dl (3.4-5.0); Anion Gap 13.7 mmol/L (6.8-13.8); Bilirubin, Total 0.5 mg/dL (0.0-1.1); Ca. Corrected For Albumin 8.9 mg/dL (8.4-10.2); Calcium * 8.3 mg/dL (7.9-10.9); Carbon Dioxide 20.4 mmol/L (24-32.6); Potassium 4.1 mmol/L (3.4-4.6); Total Protein 6.4 gm/dL (6.2-8.2)
--- NOTE | 2018-07-15 16:23 | DS ---
(1) Diabetic ketoacidosis Problem: Acute Qualifiers: Diabetes mellitus type: type 2 Diabetes mellitus complication detail: without coma Qualified Code(s): E11.10 - Type 2 diabetes mellitus with ketoacidosis without coma (2) Uncontrolled diabetes mellitus Problem: Acute Qualifiers: Diabetes mellitus type: type 2 Glycemic state: with hyperglycemia Qualified Code(s): E11.65 - Type 2 diabetes mellitus with hyperglycemia Description of Stay: Jose is a 57 yo male with uncontrolled diabetes mellitus by fact of A1c of 10.3. He was admitted from clinic due to high anion gap metabolic acidosis with presence of serum ketones. He was admitted to the hospital and placed on aggressive IV fluids and IV insulin. Insulin was titrated to gradually lower blood glucose. Blood glucose was monitored every hour and insulin drip was adjusted based on protocol. CMP was monitored every 4 hours and fluids were adjusted accordingly. High anion gap resolved and the patient's lethargy improved. He reports feeling able to stay hydrated on his own and able to be discharged. He met with the hat cleaner for educated and I will increase his glimepiride to 4mg daily to help with glucose control. Procedures Performed: none Results and Findings: Lab Pending Results 07/14/18 15:46: Troponin I Less than 0.017 07/14/18 16:40: pCO2 24.6 L, pO2 76.6 L, HCO3 13.3 L, Total CO2 14.1 L, Base Excess -10.2 L, ABG pH 7.35, ABG O2 Sat (Measured) 95.1 07/14/18 17:21: Sodium 133, Plasma Sodium 135, Potassium 4.7 H, Chloride 99, Carbon Dioxide 20.7 L, Anion Gap 18.0 H, BUN 13, Creatinine 1.17, Est GFR (Non- Af Amer) 69, BUN/Creatinine Ratio 11.1, Random Glucose 230 H, Calcium 8.9, Calcium Adj for Albumin 9.1, Total Bilirubin 0.6, AST 17, ALT 30, Alkaline Phosphatase 91, Total Protein 7.1, Albumin 3.4 07/14/18 21:00: Sodium 133, Plasma Sodium 134, Potassium 3.9, Chloride 103, Carbon Dioxide 19.7 L, Anion Gap 14.2 H, BUN 11, Creatinine 1.00, Est GFR (Non- Af Amer) 82, BUN/Creatinine Ratio 11.0, Random Glucose 169 H, Calcium 8.0, Calcium Adj for Albumin 8.6, Total Bilirubin 0.5, AST 17, ALT 24, Alkaline Phosphatase 79, Total Protein 6.1 L, Albumin 2.9 L 07/14/18 21:48: Urine Color Yellow, Urine Appearance Clear, Urine pH 6.0, Ur Specific [place] >=1.030, Urine Protein Negative, Urine Glucose (UA) 500 H, Urine Ketones Large, Urine Blood Negative, Urine Nitrate Negative, Urine Bilirubin 1 H, Urine Ictotest Negative, Urine Urobilinogen Normal, Ur Leukocyte Esterase Negative, Urine RBC None seen, Urine WBC Trace, Ur Epithelial Cells 0- 5, Amorphous Sediment Trace, Urine Bacteria Trace 07/15/18 01:35: Sodium 132, Plasma Sodium 134, Potassium 3.5, Chloride 101, Carbon Dioxide 21.8 L, Anion Gap 12.7, BUN 10, Creatinine 1.02, Est GFR (Non-Af Amer) 80, BUN/Creatinine Ratio 9.8, Random Glucose 207 H, Calcium 7.7 L, Calcium Adj for Albumin 8.3 L, Total Bilirubin 0.5, AST 16, ALT 23, Alkaline Phosphatase 74, Total Protein 5.9 L, Albumin 2.8 L 07/15/18 05:00: Sodium 132, Plasma Sodium 133, Potassium 3.6, Chloride 103, Carbon Dioxide 23.7 L, Anion Gap 8.9, BUN 9, Creatinine 1.02, Est GFR (Non-Af Amer) 80, BUN/Creatinine Ratio 8.8 L, Random Glucose 179 H, Calcium 7.7 L, Calcium Adj for Albumin 8.3 L, Total Bilirubin 0.5, AST 17, ALT 24, Alkaline Phosphatase 70, Total Protein 5.9 L, Albumin 2.8 L 07/15/18 09:05: Sodium 132, Plasma Sodium 133, Potassium 3.7, Chloride 102, Carbon Dioxide 21.9 L, Anion Gap 11.8, BUN 7, Creatinine 0.88, Est GFR (Non-Af Amer) 95, BUN/Creatinine Ratio 8.0 L, Random Glucose 184 H, Calcium 7.9, Calcium Adj for Albumin 8.5, Total Bilirubin 0.5, AST 18, ALT 25, Alkaline Phosphatase 73, Total Protein 6.0 L, Albumin 2.8 L 07/15/18 14:00: Sodium 129 L, Plasma Sodium 132, Potassium 4.1, Chloride 99, Carbon Dioxide 20.4 L, Anion Gap 13.7, BUN 6, Creatinine 0.86, Est GFR (Non-Af Amer) 98, BUN/Creatinine Ratio 7.0 L, Random Glucose 286 H D, Calcium 8.3, Calcium Adj for Albumin 8.9, Total Bilirubin 0.5, AST 17, ALT 26, Alkaline Phosphatase 77, Total Protein 6.4, Albumin 2.9 L Discharge Location: Home Disposition: Home self-care Condition: Fair Discharge Activity: Activity as tolerated Discharge Diet: Consistent carbs Referrals: Octavio Harp DO [Primary Care Provider] - Problem Oriented Discharge Instructions to Patient/Family: Diabetic Ketoacidosis, Hyperglycemia, [id number] Prescriptions (Any new or edited meds): Glimepiride [Amaryl] 4 mg PO DAILY@0700 #30 tablet Complete Home Medications List: Complete Home Medication List: metFORMIN HCL [Glucophage] 1,000 mg PO BIDWM #60 tab 04/20/15 Aspirin [Aspir-Low] 81 mg PO DAILY PRN 12/01/16 Rosuvastatin Calcium [Crestor] 10 mg PO DAILY 12/01/16 hydrOXYzine PAMOATE [Hydroxyzine Pamoate] 25 mg PO TID PRN #20 cap 07/15/17 sulfamethoxazole 800 mg-trimethoprim 160 mg tablet 1 tab PO BID 14 Days #28 tab 07/06/18 Acetaminophen [Tylenol] 650 mg PO Q4H PRN 07/14/18 nystatin 100,000 unit/mL oral suspension 5 ml PO QID 7 Days #140 ml 07/14/18 Glimepiride [Amaryl] 4 mg PO DAILY@0700 #30 tablet 07/15/18
[2018-07-15 17:18] VITALS: BP 131/79
== END 2018-07-15 17:20 | disposition home or self-care (01) ==
LOC: INTOOBSV 15:36 → MS 15:36
PROVIDERS: ADMIT Family Medicine; ATTEND Family Medicine
CPT/HCPCS: 36415; 36600; 71020; 71046; 80053; 81001; 82803; 84484; 87040; 93005; 96361; 96365; 96366; 96367; G0378; G0379